=== PATIENT | female | born 1980 | race Caucasian/White ===

== ENCOUNTER 2019-12-27 11:50 | Emergency (ER) | payer OTHER ==
[~2019-12-27] VITALS: Ht 160 cm; Wt 63.0 kg
[2019-12-27] MEDS ORDERED: IRON18 M1 PO (12:15)
[2019-12-27] MEDS ORDERED: VITAMIN D3100 MCG PO (12:15)
[2019-12-27 12:24] LABS: ABSOLUTE NEUTROPHILS 12.3 thou/uL (1.4-8.2); BASOPHILS 0.4 % (0.0-2.0); EOSINOPHILS 0.6 % (0.0-3.0); HEMATOCRIT 38.5 % (37.0-47.0); HEMOGLOBIN 12.4 gm/dL (12.0-15.0); LYMPHOCYTES 14.4 % (24.0-44.0); MCH 24.4 pg (26.0-34.0); MCHC 32.2 g/dL (28.0-37.0); MCV 75.8 fL (80.0-100.0); MONOCYTES 4.8 % (1.0-8.0); PLATELET COUNT 281 thou/uL (150-400); POLYS 79.8 % (36.0-66.0); RBC 5.08 mil/uL (4.20-5.00); RDW 20.2 % (10.5-14.5); WBC 15.5 thou/uL (4.0-11.0)
[2019-12-27 12:37] LABS: ALBUMIN 4.7 g/dL (3.4-5.0); AMYLASE 32 U/L (25-115); ANION GAP 14 mmol/L (7-16); BUN 16 mg/dL (7-18); CALCIUM 9.1 mg/dL (8.5-10.1); CHLORIDE 102 mmol/L (98-107); CO2 24 mmol/L (21-32); CREATININE 0.8 mg/dL (0.6-1.0); DIRECT BILIRUBIN < 0.1 mg/dL (<0.1-0.2); GLUCOSE 127 mg/dL (74-106); LIPASE 107 U/L (73-393); SGOT 25 U/L (15-37); SGPT 35 U/L (30-65); SODIUM 140 mmol/L (136-145); TOTAL BILIRUBIN 0.5 mg/dL (<0.1-1.0); TOTAL PROTEIN 9.1 g/dL (6.4-8.2)
[2019-12-27 13:04] LABS: ANISOCYTOSIS 2+; HYPOCHROMASIA 2+; MICROCYTES 2+
[2019-12-27 13:18] LABS: URINE BILIRUBIN NEGATIVE (Negative); URINE BLOOD 2+ (Negative); URINE CLARITY CLEAR; URINE COLOR YELLOW; URINE GLUCOSE-RANDOM* NEGATIVE (Negative); URINE KETONES NEGATIVE (Negative); URINE LEUKOCYTES-REFLEX NEGATIVE (Negative); URINE NITRITE-REFLEX NEGATIVE (Negative); URINE UROBILINOGEN 0.2 E.U./dl (0.2-1.0)
[2019-12-27 13:23] LABS: SSA (PROTEIN CONFIRMATORY) TRACE (APPROX. 5) mg/dL (Negative)
[2019-12-27 13:25] LABS: SQUAMOUS 4-10 Moderate /LPF (0-3)
[2019-12-27 13:26] LABS: BACTERIA-REFLEX None Seen /HPF (None Seen); CASTS None Seen /LPF (None Seen); CRYSTALS None Seen /LPF (None Seen); URINE RBC 3-10 Few /HPF (0-2); URINE WBC-REFLEX 0-5 Rare /HPF (0-5)
[2019-12-27 15:22] VITALS: BP 128/82
== END 2019-12-27 15:25 | disposition home or self-care (01) ==
LOC: EDBD 11:50 → ER 11:50
PROVIDERS: Nurse Practitioner
DX: R42 Dizziness and giddiness (principal); R11.2 Nausea with vomiting, unspecified; R51 Headache; I10 Essential (primary) hypertension; Z79.899 Other long term (current) drug therapy